=== PATIENT | female | born 1960 ===

== ENCOUNTER 2020-06-16 09:57 | Outpatient (REF) | payer OTHER, SELFPAY ==
[2020-06-16 21:38] LABS: C-Reactive Protein 0.15 mg/dL (0.0-0.3)
[2020-06-18 20:04] LABS: Rheumatoid Factor 13.3 IU/mL (<12.0)
[2020-06-19 09:57] LABS: Cyclic Citrullinated Peptide <2.5 U/mL (<5.0)
[2020-06-19 10:43] LABS: Lyme Ab w Rflx to Lyme Confirm Negative (Negative)
== END 2020-06-16 10:17 ==
LOC: NCHCN 09:57
PROVIDERS: PCP Nurse Practitioner Family; Visit Provider Nurse Practitioner Family
DX: M25.40 Effusion, unspecified joint (principal)
CPT/HCPCS: 86200; 86140; 86431; 86618

== ENCOUNTER 2021-05-10 08:13 | Outpatient (REF) | payer OTHER, SELFPAY ==
[2021-05-10 13:37] LABS: HCT 42.3 % (36.0-46.0); HGB 14.2 g/dL (11.2-15.7); MCH 31.7 pg (27.0-33.0); MCHC 33.6 % (32.0-36.0); MCV 94.4 fL (80-95); MPV 11.3 fL (8.0-11.0); Platelet Count 184 10^3/uL (130-400); RBC 4.48 10^6/uL (3.93-5.22); RDW 12.6 % (11.7-14.6); RDW-SD 43.3 fL; WBC 2.81 10^3/uL (4.4-10.8)
[2021-05-10 13:59] LABS: Anion Gap 6.7 mmol/L (3-11); BUN 15 mg/dL (7-18); CO2 28.3 mmol/L (21.0-32.0); CREATININE 0.9 mg/dL (0.55-1.02); Calcium 9.1 mg/dL (8.5-10.1); Chloride 106 mmol/L (98-107); Glucose 109 mg/dL (74-106); Potassium 4.3 mmol/L (3.5-5.1); Sodium 141 mmol/L (136-145); TSH (W/Ref FT4) 2.08 uIU/mL (0.36-3.74)
[2021-05-10 14:05] LABS: Hemoglobin A1C 4.9 % (<5.7)
== END 2021-05-10 08:14 | disposition home or self-care (01) ==
LOC: NCHCN 08:13
PROVIDERS: PCP Nurse Practitioner Family; Visit Provider Nurse Practitioner Community Health
DX: R42 Dizziness and giddiness (principal); Z86.2 Personal history of diseases of the blood and blood-forming organs and certain disorders involving the immune mechanism; Z68.27 Body mass index [BMI] 27.0-27.9, adult; R73.09 Other abnormal glucose
CPT/HCPCS: 80048; 85027; 83036; 84443

== ENCOUNTER 2021-05-17 13:22 | Outpatient (REF) | payer OTHER, SELFPAY ==
[2021-05-17 14:14] LABS: Abs Immature Grans 0.01 10^3/uL (0.0-0.06); Absolute Basophil Count 0.02 10^3/uL (0.0-0.2); Absolute Eosinophil Count 0.04 10^3/uL (0.0-0.7); Absolute Lymphocyte Count 1.39 10^3/uL (1.2-3.4); Absolute Monocyte Count 0.36 10^3/uL (0.1-0.8); Absolute Neutrophil Count 1.67 10^3/uL (1.2-6.7); Basophils % 0.6; Eosinophils % 1.1; HCT 44.5 % (36.0-46.0); HGB 14.7 g/dL (11.2-15.7); Immature Grans % 0.3; Lymphocytes % 39.8; MCH 31.7 pg (27.0-33.0); MCV 96.1 fL (80-95); MPV 11.4 fL (8.0-11.0); Monocytes % 10.3; Neutrophils % 47.9; Nucleated RBC 0 %; Platelet Count 180 10^3/uL (130-400); RBC 4.63 10^6/uL (3.93-5.22); RDW 12.3 % (11.7-14.6); RDW-SD 43.5 fL; WBC 3.49 10^3/uL (4.4-10.8)
== END 2021-05-17 13:23 | disposition home or self-care (01) ==
LOC: NCHCN 13:22
PROVIDERS: PCP Nurse Practitioner Family; Visit Provider Nurse Practitioner Community Health
DX: Z86.2 Personal history of diseases of the blood and blood-forming organs and certain disorders involving the immune mechanism (principal)
CPT/HCPCS: 85025

== ENCOUNTER 2021-08-23 09:23 | Outpatient (REF) | payer OTHER, SELFPAY ==
[2021-08-23 21:11] LABS: Abs Immature Grans 0.01 10^3/uL (0.0-0.06); Absolute Basophil Count 0.04 10^3/uL (0.0-0.2); Absolute Eosinophil Count 0.04 10^3/uL (0.0-0.7); Absolute Lymphocyte Count 1.28 10^3/uL (1.2-3.4); Absolute Monocyte Count 0.37 10^3/uL (0.1-0.8); Absolute Neutrophil Count 1.25 10^3/uL (1.2-6.7); Basophils % 1.3; Eosinophils % 1.3; HCT 40.4 % (36.0-46.0); HGB 13.5 g/dL (11.2-15.7); Immature Grans % 0.3; Lymphocytes % 42.8; MCH 32.1 pg (27.0-33.0); MCHC 33.4 % (32.0-36.0); MPV 10.8 fL (8.0-11.0); Monocytes % 12.4; Neutrophils % 41.9; Nucleated RBC 0 %; Platelet Count 187 10^3/uL (130-400); RBC 4.21 10^6/uL (3.93-5.22); RDW-SD 41.8 fL; WBC 2.99 10^3/uL (4.4-10.8)
== END 2021-08-23 09:24 | disposition home or self-care (01) ==
LOC: NCHCN 09:23
PROVIDERS: PCP Nurse Practitioner Family; Visit Provider Nurse Practitioner Community Health
DX: Z86.2 Personal history of diseases of the blood and blood-forming organs and certain disorders involving the immune mechanism (principal)
CPT/HCPCS: 85025

== ENCOUNTER 2021-09-03 17:25 | Outpatient (REF) | payer OTHER, SELFPAY ==
[2021-09-03 21:20] LABS: Abs Immature Grans 0.01 10^3/uL (0.0-0.06); Absolute Basophil Count 0.02 10^3/uL (0.0-0.2); Absolute Eosinophil Count 0.04 10^3/uL (0.0-0.7); Absolute Lymphocyte Count 1.44 10^3/uL (1.2-3.4); Absolute Monocyte Count 0.25 10^3/uL (0.1-0.8); Absolute Neutrophil Count 1.83 10^3/uL (1.2-6.7); Basophils % 0.6; Eosinophils % 1.1; HCT 40.4 % (36.0-46.0); HGB 13.5 g/dL (11.2-15.7); Immature Grans % 0.3; Lymphocytes % 40.1; MCH 32.1 pg (27.0-33.0); MCHC 33.4 % (32.0-36.0); MPV 10.9 fL (8.0-11.0); Neutrophils % 50.9; Nucleated RBC 0 %; Platelet Count 175 10^3/uL (130-400); RBC 4.21 10^6/uL (3.93-5.22); RDW 12.2 % (11.7-14.6); RDW-SD 42.6 fL; WBC 3.59 10^3/uL (4.4-10.8)
[2021-09-03 22:51] LABS: ALT 28 U/L (14-59); AST 19 U/L (15-37); Albumin 3.9 g/dL (3.4-5.0); Alkaline Phosphatase 55 U/L (46-116); Anion Gap 8.1 mmol/L (3-11); BUN 16 mg/dL (7-18); Bilirubin, Total 2.1 mg/dL (0.2-1.0); CO2 27.9 mmol/L (21.0-32.0); CREATININE 0.9 mg/dL (0.55-1.02); Calcium 8.8 mg/dL (8.5-10.1); Chloride 106 mmol/L (98-107); Folate 15.3 ng/mL (8.6-20.0); Glucose 111 mg/dL (74-106); Potassium 3.8 mmol/L (3.5-5.1); Sodium 142 mmol/L (136-145); Total Protein 6.9 g/dL (6.4-8.2); Vitamin B12 418 pg/mL (193-986)
== END 2021-09-03 17:26 | disposition home or self-care (01) ==
LOC: NCHCN 17:25
PROVIDERS: PCP Nurse Practitioner Family; Visit Provider Nurse Practitioner Community Health
DX: R68.89 Other general symptoms and signs (principal); Z86.2 Personal history of diseases of the blood and blood-forming organs and certain disorders involving the immune mechanism
CPT/HCPCS: 80053; 82607; 82746; 85025

== ENCOUNTER 2021-09-26 11:48 | Outpatient (REF) | payer OTHER, SELFPAY ==
[2021-09-26 15:07] LABS: Abs Immature Grans 0.01 10^3/uL (0.0-0.06); Absolute Basophil Count 0.03 10^3/uL (0.0-0.2); Absolute Eosinophil Count 0.03 10^3/uL (0.0-0.7); Absolute Lymphocyte Count 1.65 10^3/uL (1.2-3.4); Absolute Monocyte Count 0.33 10^3/uL (0.1-0.8); Basophils % 0.7; Eosinophils % 0.7; HCT 39.4 % (36.0-46.0); HGB 13.3 g/dL (11.2-15.7); Immature Grans % 0.2; Lymphocytes % 40.3; MCH 31.4 pg (27.0-33.0); MCHC 33.8 % (32.0-36.0); MCV 93.1 fL (80-95); Monocytes % 8.1; Nucleated RBC 0 %; Platelet Count 164 10^3/uL (130-400); RBC 4.23 10^6/uL (3.93-5.22); RDW 11.7 % (11.7-14.6); RDW-SD 40.1 fL; WBC 4.09 10^3/uL (4.4-10.8)
[2021-09-26 15:08] LABS: Absolute Neutrophil Count 2.05 10^3/uL (1.2-6.7)
== END 2021-09-26 11:49 | disposition home or self-care (01) ==
LOC: NCHCN 11:48
PROVIDERS: PCP Nurse Practitioner Family; Visit Provider Nurse Practitioner Community Health
DX: D72.819 Decreased white blood cell count, unspecified (principal)
CPT/HCPCS: 85025

== ENCOUNTER 2021-10-29 13:02 | Outpatient (REF) | payer OTHER, SELFPAY ==
[2021-10-29 14:33] LABS: Abs Immature Grans 0.01 10^3/uL (0.0-0.06); Absolute Basophil Count 0.02 10^3/uL (0.0-0.2); Absolute Eosinophil Count 0.03 10^3/uL (0.0-0.7); Absolute Neutrophil Count 1.92 10^3/uL (1.2-6.7); Basophils % 0.5; Eosinophils % 0.8; HCT 40.1 % (36.0-46.0); HGB 13.5 g/dL (11.2-15.7); Immature Grans % 0.3; MCH 31.8 pg (27.0-33.0); MCHC 33.7 % (32.0-36.0); MCV 94.6 fL (80-95); MPV 10.9 fL (8.0-11.0); Monocytes % 8.2; Neutrophils % 52.2; Nucleated RBC 0 %; Platelet Count 166 10^3/uL (130-400); RBC 4.24 10^6/uL (3.93-5.22); RDW 11.9 % (11.7-14.6); RDW-SD 41.4 fL; WBC 3.68 10^3/uL (4.4-10.8)
== END 2021-10-29 13:03 | disposition home or self-care (01) ==
LOC: NCHCN 13:02
PROVIDERS: PCP Nurse Practitioner Family; Visit Provider Registered Nurse
DX: D72.819 Decreased white blood cell count, unspecified (principal)
CPT/HCPCS: 85025

== ENCOUNTER 2022-04-03 14:48 | Outpatient (REF) | payer OTHER, SELFPAY ==
[2022-04-03 16:33] LABS: ESR 25 mm/hr (0-30)
[2022-04-03 16:42] LABS: ALT 18 U/L (14-59); AST 18 U/L (15-37); Albumin 3.9 g/dL (3.4-5.0); Alkaline Phosphatase 66 U/L (46-116); Anion Gap 8.5 mmol/L (3-11); BUN 18 mg/dL (7-18); Bilirubin, Total 1.8 mg/dL (0.2-1.0); C-Reactive Protein 0.57 mg/dL (0.0-0.3); CO2 28.5 mmol/L (21.0-32.0); CREATININE 0.8 mg/dL (0.55-1.02); Calcium 9.1 mg/dL (8.5-10.1); Calculated LDL 65 mg/dL (<100); Chloride 104 mmol/L (98-107); Cholesterol 143 mg/dL (<200); Glucose 86 mg/dL (74-106); HDL Cholesterol 64 mg/dL (40-60); Potassium 4.8 mmol/L (3.5-5.1); Sodium 141 mmol/L (136-145); Total Protein 7.3 g/dL (6.4-8.2); Triglyceride 71 mg/dL (<150)
[2022-04-03 16:45] LABS: Abs Immature Grans 0.01 10^3/uL (0.0-0.06); Absolute Basophil Count 0.01 10^3/uL (0.0-0.2); Absolute Eosinophil Count 0.04 10^3/uL (0.0-0.7); Absolute Lymphocyte Count 1.18 10^3/uL (1.2-3.4); Basophils % 0.3; Eosinophils % 1.1; HCT 40.9 % (36.0-46.0); HGB 13.8 g/dL (11.2-15.7); Immature Grans % 0.3; Lymphocytes % 31.1; MCH 31.8 pg (27.0-33.0); MCHC 33.7 % (32.0-36.0); MCV 94 fL (80-95); MPV 11.1 fL (8.0-11.0); Monocytes % 13.2; Platelet Count 212 10^3/uL (130-400); RBC 4.34 10^6/uL (3.93-5.22); RDW-SD 41.8 fL
[2022-04-03 16:46] LABS: Absolute Neutrophil Count 2.05 10^3/uL (1.2-6.7)
[2022-04-04 17:34] LABS: Rheumatoid Factor 11.3 IU/mL (<12.0)
[2022-04-05 10:02] LABS: Cyclic Citrullinated Peptide <2.5 U/mL (<5.0)
[2022-04-05 11:27] LABS: Lyme Ab w Rflx to Lyme Confirm Negative (Negative)
[2022-04-05 19:12] LABS: Phospholipid Ab, IgG <9.4 GPL; Phospholipid Ab, IgM 70.4 MPL
[2022-04-05 19:51] LABS: Anaplasma phagocytophilum Negative (Negative); B. miyamotoi PCR Negative (Negative); Babesia divergens/MO-1 Negative (Negative); Babesia duncani Negative (Negative); Babesia microti Negative (Negative); Ehrlichia chaffeensis Negative (Negative); Ehrlichia ewingii/canis Negative (Negative); Ehrlichia muris eauclairensis Negative (Negative)
[2022-04-08 16:15] LABS: ANA Interpretation Positive (Negative)
== END 2022-04-03 14:49 | disposition home or self-care (01) ==
LOC: NCHCN 14:48
PROVIDERS: PCP Nurse Practitioner Family; Visit Provider Registered Nurse
DX: Z00.00 Encounter for general adult medical examination without abnormal findings (principal); M25.50 Pain in unspecified joint; R53.83 Other fatigue; M25.40 Effusion, unspecified joint; Z83.2 Family history of diseases of the blood and blood-forming organs and certain disorders involving the immune mechanism; R79.89 Other specified abnormal findings of blood chemistry
CPT/HCPCS: 80053; 80061; 85652; 86147; 86200; 87798; 85025; 86038; 86140; 86431; 86618

== ENCOUNTER 2024-09-21 17:59 | Outpatient (REF) | payer OTHER, SELFPAY ==
[2024-09-21 15:18] LABS: HCT 39.4 % (36.0-46.0); HGB 13.1 g/dL (11.2-15.7); MCH 30.2 pg (27.0-33.0); MCHC 33.2 % (32.0-36.0); MCV 91 fL (80-95); MPV 10.8 fL (8.0-11.0); Platelet Count 183 10^3/uL (130-400); RBC 4.34 10^6/uL (3.93-5.22); RDW 12.1 % (11.7-14.6); RDW-SD 40.2 fL; WBC 2.27 10^3/uL (4.4-10.8)
[2024-09-21 15:43] LABS: ALT 19 U/L (14-59); AST 22 U/L (15-37); Albumin 3.6 g/dL (3.4-5.0); Alkaline Phosphatase 69 U/L (46-116); Anion Gap 6.7 mmol/L (3-11); BUN 11 mg/dL (7-18); Bilirubin, Total 1.78 mg/dL (0.2-1.0); CO2 27.3 mmol/L (21.0-32.0); CREATININE 0.8 mg/dL (0.55-1.02); Calcium 9.1 mg/dL (8.5-10.1); Chloride 111 mmol/L (98-107); Estimated GFR 82.23 (mL/min/1.73m2); Glucose 84 mg/dL (74-106); Potassium 4.3 mmol/L (3.5-5.1); Sodium 145 mmol/L (136-145); Total Protein 6.6 g/dL (6.4-8.2)
== END 2024-09-21 18:00 | disposition home or self-care (01) ==
LOC: NCHCN 17:59
PROVIDERS: PCP Nurse Practitioner Family; Visit Provider Family Medicine
DX: L93.0 Discoid lupus erythematosus (principal)
CPT/HCPCS: 80053; 85027